=== PATIENT | male | born 2005 | race Caucasian/White ===

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

== ENCOUNTER 2023-04-22 15:47 | Emergency (ER) | payer BC ==
[2023-04-22 16:14] VITALS: BP 151/69; PULSE 93; RESP 16; TEMP 97.8; BMI 27.2
== END 2023-04-22 17:11 | disposition home or self-care (01) ==
LOC: FER 15:47
DX: R07.9 Chest pain, unspecified (principal); M94.0 Chondrocostal junction syndrome [Tietze]
CPT/HCPCS: 93005; 99283-25